=== PATIENT | male | born 1950 | race Caucasian/White ===

== ENCOUNTER 2018-11-02 07:14 | Emergency (ER) | payer MEDICARE, OTHER ==
--- NOTE | 2018-11-02 07:44 | ER Document Report ---
ED General - General Chief Complaint: Weakness Stated Complaint: LEFT ARM WEAKNESS Time Seen by Provider: 11/02/18 07:44 Notes: Patient is a 68-year-old male that presents to the emergency department for chief complaint of heaviness feeling and paresthesia in his left arm. Patient reports that this was first noticed around 6 AM this morning, he states he did wake up around 4:30 AM, and is not sure if he noticed it at that time. There is otherwise less than a normal was around 11 PM last night. He denies having any associated headache, lightheadedness, dizziness, weakness. He states that his strength is normal, he just feels a heaviness like his arm is asleep from the mid upper arm down to the hand. He states he was raking leaves last night, and he does report having a history of a pinched nerve in his neck, that he takes tizanidine for, and he is not sure if this is related or not. He denies having any pain associated with this from the neck or radiating down. He denies having any blurred vision, denies any issues with walking, change in speech, or facial drooping. Past Medical History: Cervical degenerative disc disease, remote history of non- Hodgkin's lymphoma in remission Past Surgical History: 18 cm small bowel resection, elbow surgery Social History: Denies tobacco, alcohol or drug use. Family History: Reviewed and noncontributory for presenting illness Allergies: Reviewed, see documented allergy list. REVIEW OF SYSTEMS: Other than noted above, the 12 point review of systems was reviewed with the patient and were negative, all pertinent findings are included in the HPI. PHYSICAL EXAMINATION: Vital signs reviewed, nursing noted reviewed. GENERAL: Well-appearing, well-nourished and in no acute distress. HEAD: Atraumatic, normocephalic. EYES: Eyes appear normal, extraocular movements intact, sclera anicteric, conjunctiva are normal. ENT: nares patent, oropharynx clear without exudates. Moist mucous membranes. NECK: Normal range of motion, supple without lymphadenopathy, negative Spurling' s maneuver bilaterally LUNGS: Breath sounds clear to auscultation bilaterally and equal. No wheezes rales or rhonchi. HEART: Regular rate and rhythm without murmurs ABDOMEN: Soft, nontender, normoactive bowel sounds. No rebound, guarding, or rigidity. No masses appreciated. EXTREMITIES: Nontender, good range of motion, no pitting or edema. NEUROLOGICAL: There is mild diminished sensation to sharp and light touch in the left upper extremity from the mid upper arm distally compared to the right, no complete loss of sensation. The rest of the patient's neurological exam is unremarkable, his NIH stroke scale score: 1 PSYCH: Normal mood, normal affect. SKIN: Warm, Dry, normal turgor, no rashes or lesions noted on exposed skin - Related Data Allergies/Adverse Reactions: retinol Allergy (Severe, Uncoded 11/02/18 07:17) agitated Past Medical History - Social History Smoking Status: Never Smoker Family History: Reviewed & Not Pertinent - Past Medical History Cardiac Medical History: Denies: Hx Coronary Artery Disease, Hx Heart Attack, Hx Hypertension Pulmonary Medical History: Denies: Hx Asthma, Hx Bronchitis, Hx COPD, Hx Pneumonia Neurological Medical History: Denies: Hx Cerebrovascular Accident, Hx Seizures GI Medical History: Denies: Hx Hepatitis, Hx Hiatal Hernia, Hx Ulcer Musculoskeletal Medical History: Denies Hx Arthritis Infectious Medical History: Denies: Hx Hepatitis Past Surgical History: Denies: Hx Open Heart Surgery, Hx Pacemaker - Immunizations Hx Diphtheria, Pertussis, Tetanus Vaccination: No Hx Pneumococcal Vaccination: 08/03/12 Physical Exam - Vital signs Vitals: Temp Pulse Resp BP Pulse Ox 97.7 F 56 L 16 132/79 H 100 11/02/18 07:21 11/02/18 07:21 11/02/18 07:21 11/02/18 07:21 11/02/18 07:21 Course - Re-evaluation Re-evalutation: Patient seen and examined vital signs reviewed. Laboratory data and imaging were ordered as appropriate for the patient's presenting symptoms and complaint, with consideration of any critical or life threatening conditions that may be associated with their obtained history and exam as noted above. Results were reviewed when available and demonstrated unremarkable workup, negative blood work, negative CT not correlate with the patient's symptomatology today, this could also be remote and old as the patient did have intrathecal chemotherapy for his non-Hodgkin's lymphoma, CT for comparison. He did however have facet and foraminal narrowing on the left cervical spine, which would fit with the patient's symptoms of paresthesias in his left upper extremity. The patient was re-evaluated and was stable, symptoms about the same and unchanged, patient symptoms are most consistent with cervical radiculopathy, as he did have some pain associated with his paresthesias, I recommended following up with orthopedic spine, to have physical therapy, and we will treat him at this time with prednisone therapy, advised him to continue his muscle relaxers, he could also follow-up with his neurologist which she has seen in the past. As he may need an EEG. Patient was agreeable to this plan of care, discussed with him all findings, he understood. Evaluation was most consistent with cervical radiculopathy, paresthesias of the left upper extremity Results were discussed with the patient at this point, after careful consideration I feel that that patient can be discharged from the emergency department, the patient was educated treatments and reasons to return to the emergency department based on their presumed diagnosis as noted above, they were advised to followup with a primary care physician in 2-3 days. Patient was agreeable to plan of care. *Note is created using voice recognition software and may contain spelling, syntax or grammatical errors. Laboratory 11/02/18 11/02/18 11/02/18 08:35 08:35 08:35 WBC 4.4 RBC 4.83 Hgb 14.9 Hct 42.9 MCV 89 MCH 30.9 MCHC 34.8 RDW 12.9 Plt Count 142 L Seg Neutrophils % 61.2 Lymphocytes % 25.4 Monocytes % 7.3 Eosinophils % 5.4 Basophils % 0.7 Absolute Neutrophils 2.7 Absolute Lymphocytes 1.1 Absolute Monocytes 0.3 Absolute Eosinophils 0.2 Absolute Basophils 0.0 Sodium 138.3 Potassium 4.1 Chloride 105 Carbon Dioxide 26 Anion Gap 7 BUN 14 Creatinine 0.84 Est GFR ( Amer) > 60 Est GFR (Non-Af Amer) > 60 Glucose 87 Calcium 9.5 Troponin I < 0.[address] 11/02/18 08:17 IMPRESSION: No fracture or static subluxation of cervical spine. Cervical disc and neural foraminal pathology may be further evaluated by MRI if indicated by localizing signs and symptoms. Head CT 11/02/18 08:17 IMPRESSION: Small area of hypoattenuation involving the left insula, basal ganglia and centrum semiovale compatible with age indeterminate infarct second yaritza to lack of priors. Additional subtle area of hypoattenuation in the left mesial temporal lobe and cerebral peduncle name, suggestive of age-indeterminate infarcts. MRI could be considered for further evaluation of chronicity. No additional evidence of large vascular territory infarct, hemorrhage or mass lesion. 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 - Vital Signs Vital signs: Temp Pulse Resp BP Pulse Ox 97.7 F 50 L 13 125/80 97 11/02/18 07:21 11/02/18 09:00 11/02/18 10:49 11/02/18 10:49 11/02/18 10:49 - Laboratory Result Diagrams: 11/02/18 08:35 11/02/18 08:35 Laboratory results interpreted by me: 11/02/18 08:35 Plt Count 142 L - EKG Interpretation by Me Additional EKG results interpreted by me: EKG demonstrates sinus bradycardia with a ventricular rate of 54 bpm, slight left axis deviation, normal intervals, no evidence of acute ischemia on his EKG, this is compared to prior EKG from 09/28/13, without significant change. Discharge - Discharge Clinical Impression: Paresthesia of left arm Condition: Stable Disposition: HOME, SELF-CARE Instructions: Numbness or Paresthesia ([facility]) Additional Instructions: Please take the prescribed prednisone as directed, and please follow-up with the orthopedic surgeon, for further evaluation and management. If you have any further questions or concerns or develop any worsening symptoms, do not hesitate to return to the emergency department. Prescriptions: RX: Prednisone [Deltasone 20 mg Tablet] 2 tab PO DAILY 5 Days #10 tablet Referrals: IRVING PÉREZ MD [ACTIVE STAFF] - Follow up in 3-5 days MARIA DEL CARMEN OSORIO MD [ACTIVE STAFF] - Follow up in 3-5 days (ORTHOPEDIC SURGERY )
[2018-11-02 08:55] LABS: ABSOLUTE EOSINOPHILS # (AUTO) 0.2 10^3/uL (0.0-0.6); ABSOLUTE LYMPHOCYTES (AUTO) 1.1 10^3/uL (0.5-4.7); ABSOLUTE MONOCYTES (AUTO) 0.3 10^3/uL (0.1-1.4); ABSOLUTE NEUT (AUTO) 2.7 10^3/uL (1.7-8.2); BASOPHILS % (AUTO) 0.7 % (0-2); EOSINOPHILS % (AUTO) 5.4 % (0-6); HEMATOCRIT 42.9 % (37.9-51.0); HEMOGLOBIN 14.9 g/dL (13.5-17.0); LYMPHOCYTES % (AUTO) 25.4 % (13-45); MEAN CORPUSCULAR HEMOGLOBIN 30.9 pg (27.0-33.4); MEAN CORPUSCULAR HGB CONC 34.8 g/dL (32.0-36.0); MEAN CORPUSCULAR VOLUME 89 fl (80-97); MONOCYTES % (AUTO) 7.3 % (3-13); PLATELET COUNT 142 10^3/uL (150-450); RED BLOOD COUNT 4.83 10^6/uL (4.35-5.55); RED CELL DISTRIBUTION WIDTH 12.9 % (11.5-14.0); SEGMENTED NEUTROPHILS % (AUTO) 61.2 % (42-78); TOTAL CELLS COUNTED % (AUTO) 100 %; WHITE BLOOD COUNT 4.4 10^3/uL (4.0-10.5)
[2018-11-02 09:13] LABS: ANION GAP 7 (5-19); BLOOD UREA NITROGEN 14 mg/dL (7-20); CALCIUM 9.5 mg/dL (8.4-10.2); CARBON DIOXIDE 26 mmol/L (22-30); CHLORIDE 105 mmol/L (98-107); GLUCOSE 87 mg/dL (75-110); POTASSIUM 4.1 mmol/L (3.6-5.0); SODIUM 138.3 mmol/L (137-145)
--- NOTE | 2018-11-02 09:20 | RADIOLOGY REPORT (SQ) ---
EXAM DESCRIPTION: CT CERVICAL SPINE WITHOUT COMPLETED DATE/TIME: 11/02/2018 9:02 am REASON FOR STUDY: left arm numbness COMPARISON: None. TECHNIQUE: Axial images acquired through the cervical spine without intravenous contrast. Images re viewed with lung, soft tissue and bone windows. Reconstructed coronal and sagittal MPR images review ed. Images stored on PACS. All CT scanners at this facility use dose modulation, iterative reconstruction, and/or weight based d osing when appropriate to reduce radiation dose to as low as reasonably achievable (ALARA). [facility]: Dose Right [facility]: CareDose [facility]: Dose Right [facility]: Teradose 4D [facility]: [employer] RADIATION DOSE: CT Rad equipment meets quality standard of care and radiation dose reduction techniq ues were employed. CTDIvol: 13.8 mGy. DLP: 286 mGy-cm. mGy. LIMITATIONS: None. FINDINGS: ALIGNMENT: Anatomic. MINERALIZATION: Normal. VERTEBRAL BODIES: No fractures or dislocation. DISCS: Mild multilevel disc space loss. FACETS, LATERAL MASSES, POSTERIOR ELEMENTS: Left asymmetric facet degenerative disease. No fractures . No dislocation. No acute findings. HARDWARE: None in the spine. VISUALIZED RIBS: No fractures. LUNG APICES AND SOFT TISSUES: No significant or acute findings. OTHER: No other significant finding. IMPRESSION: No fracture or static subluxation of cervical spine. Cervical disc and neural foraminal pathology may be further evaluated by MRI if indicated by localizing signs and symptoms. TECHNICAL DOCUMENTATION: JOB ID: [id number] Quality ID # [id number]: Final reports with documentation of one or more dose reduction techniques (e.g., Au tomated exposure control, adjustment of the mA and/or kV according to patient size, use of iterative reconstruction technique) 2010 [employer]- All Rights Reserved Reading location - IP/workstation name: [email or web address]
--- NOTE | 2018-11-02 09:25 | RADIOLOGY REPORT (SQ) ---
EXAM DESCRIPTION: CT HEAD WITHOUT COMPLETED DATE/TIME: 11/02/2018 9:02 am REASON FOR STUDY: left arm numbness COMPARISON: None. TECHNIQUE: Axial images acquired through the brain without intravenous contrast. Images reviewed wi th bone, brain and subdural windows. Additional sagittal and coronal reconstructions were generated. Images stored on PACS. All CT scanners at this facility use dose modulation, iterative reconstruction, and/or weight based d osing when appropriate to reduce radiation dose to as low as reasonably achievable (ALARA). [facility]: Dose Right [facility]: CareDose [facility]: Dose Right [facility]: Teradose 4D [facility]: [employer] RADIATION DOSE: CT Rad equipment meets quality standard of care and radiation dose reduction techniq ues were employed. CTDIvol: 53.2 mGy. DLP: 1017 mGy-cm. mGy. LIMITATIONS: None. FINDINGS: VENTRICLES: Normal size and contour. CEREBRUM: Small area of hypoattenuation involving the left insula, basal ganglia and centrum semioval e compatible with infarct, age indeterminate secondary to lack of priors. Additional small subtle ar ea of hypoattenuation in the left mesial temporal lobe and cerebral peduncle. No additional evidence of large vascular territory infarct. Coyle-white differentiation is preserved. No evidence of intra cranial hemorrhage. CEREBELLUM: No masses. No hemorrhage. No alteration of density. No evidence for acute infarction. EXTRAAXIAL SPACES: No fluid collections. No masses. ORBITS AND GLOBE: No intra- or extraconal masses. Normal contour of globe without masses. CALVARIUM: No fracture. PARANASAL SINUSES: No fluid or mucosal thickening. SOFT TISSUES: No mass or hematoma. OTHER: No other significant finding. IMPRESSION: Small area of hypoattenuation involving the left insula, basal ganglia and centrum semio aurora compatible with age indeterminate infarct secondary to lack of priors. Additional subtle area o f hypoattenuation in the left mesial temporal lobe and cerebral peduncle name, suggestive of age-inde terminate infarcts. MRI could be considered for further evaluation of chronicity. No additional evidence of large vascular territory infarct, hemorrhage or mass lesion. 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 COMMENT: Pertinent findings on the imaging study reported as a CRITICAL RESULT to MARITZA Doll0 9:18 on 11/02/2018. Category of Critical Result: Age-indeterminate infarcts Quality ID # [id number]: Final reports with documentation of one or more dose reduction techniques (e.g., Au tomated exposure control, adjustment of the mA and/or kV according to patient size, use of iterative reconstruction technique) TECHNICAL DOCUMENTATION: JOB ID: [id number] [employer]- All Rights Reserved Reading location - IP/workstation name: [facility]
[2018-11-02 10:51] VITALS: BP 125/80
--- NOTE | 2018-11-02 11:08 | EKG REPORT ---
SEVERITY:- NORMAL ECG - SINUS RHYTHM : Confirmed by: Luis Allen MD 02-Nov-2018 11:07:59
== END 2018-11-02 10:53 | disposition home or self-care (01) ==
LOC: ER 07:14
DX: G58.9 Mononeuropathy, unspecified (principal); Z79.899 Other long term (current) drug therapy; R20.2 Paresthesia of skin; R00.1 Bradycardia, unspecified; Z85.72 Personal history of non-Hodgkin lymphomas; Z92.21 Personal history of antineoplastic chemotherapy
CPT/HCPCS: 36415; 70450; 72125; 80048; 84484; 85025; 93005; 93010; 99285